=== PATIENT | female | born 1945 | race Hispanic/Latino ===

== ENCOUNTER 2021-03-09 22:23 | Emergency (ER) | payer MEDICARE, OTHER ==
[~2021-03-09] VITALS: Ht 147.3 cm; Wt 42.2 kg
== END 2021-03-10 00:50 | disposition home or self-care (01) ==
LOC: ER 22:28
DX: S00.83XA Contusion of other part of head, initial encounter (principal); W01.0XXA Fall on same level from slipping, tripping and stumbling without subsequent striking against object, initial encounter; Y93.01 Activity, walking, marching and hiking; Y92.002 Bathroom of unspecified non-institutional (private) residence as the place of occurrence of the external cause; I10 Essential (primary) hypertension; F32.9 Major depressive disorder, single episode, unspecified
CPT/HCPCS: 70450; 72125; 99283